=== PATIENT | female | born 1980 | race Caucasian/White ===

== ENCOUNTER 2020-09-11 13:15 | Outpatient (CLI) | payer BC ==
[2020-08-13 17:52] VITALS: BMI 47.5
[~2020-09-11 13:15] MED LIST: DICLOFENAC SODI50 MG PO; LEXAPRO10 MG PO; VOLTAREN100 GM TOPICAL
== END 2020-09-11 23:59 | disposition home or self-care (01) ==
LOC: D.MAMMO 13:15
PROVIDERS: ATTEND Nurse Practitioner Family
DX: Z12.31 Encounter for screening mammogram for malignant neoplasm of breast (principal)

== ENCOUNTER → 2020-09-20 18:32 | Outpatient (CLI) | payer BC ==
[2020-08-13 17:52] VITALS: BMI 47.5
== END | disposition home or self-care (01) ==
LOC: D.LABREF 18:32
PROVIDERS: ATTEND Orthopaedic Surgery
DX: M17.11 Unilateral primary osteoarthritis, right knee (principal)

== ENCOUNTER 2020-10-10 11:48 | Observation (INO) | payer BC ==
[~2020-10-10] VITALS: Ht 175.3 cm; Wt 140.9 kg
[2020-10-31 12:44] LABS: BACTERIA MANY HPF (NONE SEEN); BILIRUBIN NEGATIVE (NEGATIVE); KETONE NEGATIVE (NEGATIVE); NITRITE POSITIVE (NEGATIVE); SQUAMOUS EPITHELIAL 0-5 HPF (0-4); UROBILINOGEN NORMAL mg/dL (< 2)
[2020-10-31 13:18] LABS: BASOPHILS 0.6 % (0-2); EOSINOPHILS 4.9 % (0-7); HEMATOCRIT 38.4 % (36.0-48.0); HEMOGLOBIN 12.2 g/dL (12-16); IMMATURE GRANULOCYTES 0.2 % (0-5); LYMPHOCYTE ABS# 2.34 10x3/uL (1.18-3.74); LYMPHOCYTES 27.7 % (15-50); MCH 27.2 pg (26.0-34.0); MCHC 31.8 g/dL (31.0-37.0); MCV 85.5 fL (80.0-100.0); MEAN PLATELET VOLUME 10.3 fL (7.4-10.4); MONOCYTES 5.6 % (2-11); NEUTROPHIL ABS# 5.16 10x3/uL (1.56-6.13); PLATELET COUNT 341 10x3/uL (130-400); RBC 4.49 10x6/uL (4.00-5.40); RDW 13.9 % (11.5-14.5); WBC 8.5 10x3/uL (4.8-10.8)
[2020-10-31 13:23] LABS: CALC OSMOLALITY 273 mosm/kg (275-300); CALCIUM 8.9 mg/dL (8.5-10.1); CHLORIDE - SERUM 102 mmol/L (98-107); CREATININE - SERUM 0.7 mg/dL (0.6-1.3); GLUCOSE 97 mg/dL (74-106); SODIUM 138 mmol/L (136-145); UREA NITROGEN 6 mg/dL (7-18); eGFR NON AFRICAN AMERICAN > 90 mL/min (90-120)
[2020-10-31 13:45] LABS: APTT 27.2 SECONDS (22.8-39.4); INR 0.94 (0.85-1.17); PROTIME 11.6 SECONDS (11.6-15.0)
[2020-11-06] VITALS (8 sets, daily range): BP systolic 134–142; BP diastolic 70–91; Ht 175.3 cm; Wt 140.9 kg
[2020-11-06 08:55] LABS: BILIRUBIN NEGATIVE (NEGATIVE); KETONE NEGATIVE (NEGATIVE); NITRITE NEGATIVE (NEGATIVE); UROBILINOGEN NORMAL mg/dL (< 2)
--- NOTE | 2020-11-06 10:51 | NUR ---
CAUTERY PAD PLACED ON LEFT THIGH. PLASMA BLADE USED ON SETTING 6/8. AQUAMANTYS USED ON SETTING 170. CAUTERY PAD LOT#[id number] EXP. 03/05/2022. JOINT COCKTAIL MIX FROM PHARMACY USED IN RIGHT KNEE JOINT BY DR SHARIF. JOINT COCKTAIL MADE WITHOUT MORPHINE BECAUSE PATIENT IS ALLERGIC.
--- NOTE | 2020-11-06 13:10 | NUR ---
RECEIEVED FROM PACU PER BED. AWAKE AND ALERT-OXYGEN AT 3L PER NC. RIGHT KNEE WRAPPED IN BJ WRAP CLEAN DRY AND INTACT. BILAT GARTH HOSE AND SCDS ON AND ATTACHED TO MACHINE. BED ALARM ON. CALL LIGHT IN REACH
--- NOTE | 2020-11-06 16:15 | NUR ---
voided large amount of clear urine on bedpan. states feels better than before. fresh ice given
--- NOTE | 2020-11-06 18:05 | MORECARE ---
CASE MANAGEMENT DISCHARGE SUMMARY PATIENT: CHARLIE CORDERO UNIT: [id number] ADM DATE: 11/06/20 AGE: 40 : 79 SEX: F ROOM/BED: D.1212 AUTHOR: MAIK,ALEIDA PHYSICIAN: REFERRING PHYSICIAN: CHRISTIANO SHARIF DO DATE OF SERVICE: 11/06/20 Case Management Discharge Planning Summary COMMENTS ENTERED DATE: 11/06/20 18:04 CT COMMENT TYPE: Discharge Planning REVIEWER: Antoni Mcknight CM met with patient to complete DC plan and to evaluate needs. Patient lives alone with limited support. Patient identified her best friend, Santos Sharif, as her person to notify. Patient stated that her home is safe and has electricity and running water. Patient stated that the home has 6 steps to enter and she is able to manage the steps without difficulty. Patient stated that she has no problems paying for medications and she fills her medications at [facility]. Patient stated that her primary care physician is Dr. Diego Pope. At discharge, the patient plans to return home and feels this is a safe discharge. CM discussed availability of home health, rehab services, and medical equipment. Patient declined HHS, SNF, IPR, and DME. Patient stated that her CPM and Walker arrived at the house before surgery. Patient would like to discuss the possibility of HHS with Dr. Sharif because she feels that transportation will be unreliable. Patient would like Outpatient PT services with [facility] OP PT. Clinical Documents faxed. [facility] for [facility] OP PT signed and placed in chart. Patient voiced no other needs at this time and is satisfied with DC plan. CM will continue to follow and will assist as needed with dc plans/needs. DCP REVIEW SUMMARY ANTICIPATED D/C DATE: EXPECTED LOS : CASE STATUS: DCP Initiated INITIAL REVIEW: 11/06/2020 INITIAL REVIEWER: Antoni Mcknight FINAL DISCHARGE DISPOSITION: : FINAL REVIEWER: FINAL REVIEW DATE: DCP Focus Questions & Answers DCP Evaluation QUESTION: ANSWER Family / Caregiver's ability to cope with chronic illness: : a. Adequate (ability to meet patient's medical needs, ensures patient attends medical appts.) Patient gives permission to discuss discharge plans with: (name, relationship and number) : friend, Santos Sharif, Patient's ability to cope with chronic illness : d. No chronic illness Patient's current cognitive status: : *Oriented to person, place, situation, time and present Patient and/or caregiver agree upon recommended discharge plan? : Yes Physical Status: : Independent with ADL's Family / Caregiver's ability to cope with chronic illness: : a. Adequate (ability to meet patient's medical needs, ensures patient attends medical appts.) Functional screen assessment: : Basic needs can adequately be met by self Does the patient have the ability to pay for or attain post discharge needs / services? : Yes Living Arrangements: : Home Alone with No Support Is there a likelihood that the patient will require additional services to return to the preadmission environment? : No Equipment needed for post hospitalization: : None Baseline cognitive status: : *Oriented to person, place, situation, time and present Patient with capacity for self-care or can be cared for in same environment as prior to hospitalization? : Yes Physical environment modification needed / anticipated for discharge: : No Medication Management: : Patient states can afford medications Medication Management: : Patient states can read and understand medication labels Pharmacy name(s): : [facility] Does Patient have transportation to get home and to follow-up medical appointments when discharged from the hospital? : Yes Would patient like to participate in any Care Coordination programs (if applicable): : Not applicable Does the patient have electricity at home? : Yes Does the patient have running water in their house? : Yes Equipment in use: : None Other Equipment comments: : CPM and WALKER Delivered before Surgery Mental health screen: : No mental health history DCP Re-evaluation QUESTION: ANSWER Would patient like to participate in any Care Coordination programs (if applicable): : Not applicable PATIENT: CHARLIE CORDERO ENCOUNTER: [id number] MEDICAL RECORD#: [id number] ADMISSION DATE: 11/06/2020 DISCHARGE DATE: ATTENDING MD: CHRISTIANO HECK : AGE: 40 MARITAL STATUS: S DC PLAN ID: [id number] FACILITY: [facility] PRINTED ON: 11/06/20 18:05 CT All edits/amendments must be made on the electronic document DICTATION DATE: 11/06/201804 DOMESTIC HOUSEKEEPER: LAURA 11/06/201804 RPT#: [id number] DC DATE: STATUS: ADM IN [facility] [address] [facility] [place] [address] END OF REPORT
--- NOTE | 2020-11-06 20:00 | NUR ---
ALERT RESTING IN BED CPM IN USE, REPORTS PAIN BETTER AFTER MEDICATION, SEE SHIFT ASSESSMENT, CALL LIGHT IN REACH
--- NOTE | 2020-11-06 20:17 | OP ---
PATIENT NAME: CHARLIE CORDERO MEDICAL RECORD: [id number] :78 LOCATION:D. D.1212 ADMISSION DATE:11/06/20 SURGEON: JULES SHARIF DO DATE OF OPERATION: 11/06/2020 PROCEDURE PERFORMED: Right total knee arthroplasty. PREOPERATIVE DIAGNOSIS: Right knee osteoarthritis. POSTOPERATIVE DIAGNOSIS: Right knee osteoarthritis. INDICATIONS: Ms. Cordero is a 40-year-old female who has had right knee pain for quite some time. She has tried all manner of nonoperative treatment including injections, physical therapy to no avail. 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 She was tired of dealing with it. I informed her that due to her young age, she would be at high risk for infection, bleeding, damage to nerves or vessels, need for further surgery, revision surgery in the future, failure of implants, blood clots, fracture, and even and she signed the consent. SURGEON: Jules Sharif DO DESCRIPTION OF PROCEDURE: The patient was taken to the operative suite. After getting a spinal and adductor canal block, laid in supine position, given light sedation, 3 grams of Ancef and 80 mg of gentamicin and a gram of TXA. The right lower extremity was then prepped and draped in sterile fashion. A timeout was performed. Everyone was in agreeance with the correct side, site, patient and procedure. I then marked out the incision of the anterior knee covered in Ioban. I then made careful dissection down through the skin with #10 blade scalpel to the capsule. The capsule was then opened with a fresh 10-blade, did a medial parapatellar approach and any bleeding was coagulated with Aquamantys. I then everted the patella and milled it down and drilled for a 29. Cement was mixed. We put cement around the patella and on the implant, squeezed it into place, removed the excess cement, let the squeezer on for 10 minutes. I then exposed the femur and removed the ACL and went to the femoral canal and then cut the distal femur with the distal femoral intramedullary guide. I then exposed the tibia and cut it off an extramedullary guide. I did end up cutting for more off the tibia due to not completely removing the cartilage on the lateral side. Of note, the medial and lateral femoral condyles as well as the trochlea had a large OCD lesions full thickness on them. The complete full thickness of the cartilage was gone. After cutting the tibia, I then sized the femur to be a 9. I used a 4-in-1 cutting block and an sharri wing to ensure there was no notching. I then removed the excess bone after cut through the 4-in-1 cutting block and then exposed the tibia, sized it to be a E after re-cutting it, pinned into place and then put on a 9 trial femur, dissected with a 9 narrow, put a 13 poly in between and it ranged very well, had good varus and valgus stress in extension, mid flexion, and flexion. I then drilled the holes for the lug holes for the femur. I then drilled the holes for the tibia after removing the poly and the femoral implant. I then irrigated and impacted on the tibia first, press fit and then femur and then put the 13-poly in between medial congruent bearing poly and squeezed it into place. I then ranged the knee, it ranged very nicely, had good stability to varus and valgus stress in extension, mid flexion, and flexion. I then irrigated with 10% povidine-iodine and 500 mL normal saline solution and put in the joint cocktail injecting around, but did not put in morphine due to her allergy. I then irrigated out the 10% povidine-iodine and OPERATIVE REPORT [id number] CHARLIE CORDERO S 500 mL of saline solution with over a liter of normal saline and putting Cesar and vancomycin and tobramycin powder, and then closed the capsule with #1 Vicryl in horizontal mattress fashion. Jami Cordon, certified registered dental assistant then closed the capsule with a running Stratafix #1 and then the skin with 2-0 Vicryl in inverted interrupted fashion, put a ZipLine on the knee and dressed with Adaptic, 4 x 4s, ABD, Webril, Bandar wrap and GARTH hose stocking up the knee. She was then awakened and taken to recovery in stable condition. BLOOD LOSS: Approximately 300 mL. COMPLICATIONS: None. TRANSINT:[id number] Voice Confirmation ID: [id number] DOCUMENT ID: [id number] JULES SHARIF DO at 2017 CC: [id number] DICTATION DATE: 11/06/20 1145 NUCLEAR CHEMISTRY TECHNICIAN: 11/06/20 1532 ADM IN [facility] [address] [place] [address]
[2020-11-07 00:31] VITALS: BP 135/63
[2020-11-07 04:00] VITALS: BP 132/68
[2020-11-07 07:11] VITALS: BP 123/55
--- NOTE | 2020-11-07 07:42 | NUR ---
PT SEEN AND ASSESSED. STATES PAIN IS 5/10 BUT OK FOR THE MOMENT. USED BEDPAN AND VOIDED FREELY. CURRENTLY IN CPM MACHINE WITH SCDS AND GARTH HOSE ON BILAT. RIGHT KNEE BJ WRAP CLEAN DRY AND INTACT. CALL LIGHT IN REACH AND BED ALARM ACTIVATED.
[2020-11-07 08:04] LABS: BASOPHILS 0.2 % (0-2); EOSINOPHILS 0.9 % (0-7); HEMATOCRIT 31.5 % (36.0-48.0); HEMOGLOBIN 9.8 g/dL (12-16); IMMATURE GRANULOCYTES 0.2 % (0-5); LYMPHOCYTES 17.3 % (15-50); MCH 26.3 pg (26.0-34.0); MCHC 31.1 g/dL (31.0-37.0); MCV 84.7 fL (80.0-100.0); MEAN PLATELET VOLUME 10.4 fL (7.4-10.4); MONOCYTES 6.7 % (2-11); NEUTROPHIL ABS# 9.53 10x3/uL (1.56-6.13); NEUTROPHILS 74.7 % (40-80); PLATELET COUNT 317 10x3/uL (130-400); RBC 3.72 10x6/uL (4.00-5.40); RDW 13.9 % (11.5-14.5); WBC 12.7 10x3/uL (4.8-10.8)
[2020-11-07 08:13] LABS: CALC OSMOLALITY 274 mosm/kg (275-300); CALCIUM 8.2 mg/dL (8.5-10.1); CHLORIDE - SERUM 103 mmol/L (98-107); CREATININE - SERUM 0.7 mg/dL (0.6-1.3); GLUCOSE 98 mg/dL (74-106); POTASSIUM - SERUM 4.1 mmol/L (3.5-5.1); SODIUM 138 mmol/L (136-145); UREA NITROGEN 9 mg/dL (7-18); eGFR NON AFRICAN AMERICAN > 90 mL/min (90-120)
[2020-11-07 11:39] VITALS: BP 132/60
[2020-11-07] MEDS ORDERED: ELIQUIS2.5 MG PO (14:08)
[2020-11-07] MEDS ORDERED: PERCOCET 10-321 EAC1 PO (14:08)
[2020-11-07] MEDS ORDERED: VISTARIL50 MG PO (14:09)
[2020-11-07] MEDS ORDERED: TORADOL10 MG PO (14:09)
--- NOTE | 2020-11-07 15:04 | MORECARE ---
CASE MANAGEMENT DISCHARGE SUMMARY PATIENT: CHARLIE CORDERO UNIT: [id number] ADM DATE: 11/06/20 AGE: 40 : 78 SEX: F ROOM/BED: D.1212 AUTHOR: MAIK,DOC PHYSICIAN: REFERRING PHYSICIAN: CHRISTIANO SHARIF DO DATE OF SERVICE: 11/07/20 Case Management Discharge Planning Summary COMMENTS ENTERED DATE: 11/07/20 14:55 CT COMMENT TYPE: Discharge Planning REVIEWER: Krysten Darby CM called patient and she is going to have OP PT with [facility]. She states that she does have a ride to OP PT. I called and her first visit is tomorrow at 10:30, nurse Elva informed to place on order sheet at front of chart and notify patient. Home today with OP PT. ENTERED DATE: 11/06/20 18:04 CT COMMENT TYPE: Discharge Planning REVIEWER: Antoni Mcknight CM met with patient to complete DC plan and to evaluate needs. Patient lives alone with limited support. Patient identified her best friend, Santos Sharif, as her person to notify. Patient stated that her home is safe and has electricity and running water. Patient stated that the home has 6 steps to enter and she is able to manage the steps without difficulty. Patient stated that she has no problems paying for medications and she fills her medications at [facility]. Patient stated that her primary care physician is Dr. Diego Pope. At discharge, the patient plans to return home and feels this is a safe discharge. CM discussed availability of home health, rehab services, and medical equipment. Patient declined HHS, SNF, IPR, and DME. Patient stated that her CPM and Walker arrived at the house before surgery. Patient would like to discuss the possibility of HHS with Dr. Sharif because she feels that transportation will be unreliable. Patient would like Outpatient PT services with [facility] OP PT. Clinical Documents faxed. [facility] for [facility] OP PT signed and placed in chart. Patient voiced no other needs at this time and is satisfied with DC plan. CM will continue to follow and will assist as needed with dc plans/needs. DCP REVIEW SUMMARY ANTICIPATED D/C DATE: EXPECTED LOS : CASE STATUS: DCP Initiated INITIAL REVIEW: 11/06/2020 INITIAL REVIEWER: Antoni Mcknight FINAL DISCHARGE DISPOSITION: : FINAL REVIEWER: FINAL REVIEW DATE: DCP Focus Questions & Answers DCP Evaluation QUESTION: ANSWER Patient and/or caregiver agree upon recommended discharge plan? : Yes Patient's current cognitive status: : *Oriented to person, place, situation, time and present Patient's ability to cope with chronic illness : d. No chronic illness Patient gives permission to discuss discharge plans with: (name, relationship and number) : friend, Santos Sharif, Family / Caregiver's ability to cope with chronic illness: : a. Adequate (ability to meet patient's medical needs, ensures patient attends medical appts.) Does the patient have the ability to pay for or attain post discharge needs / services? : Yes Functional screen assessment: : Basic needs can adequately be met by self Family / Caregiver's ability to cope with chronic illness: : a. Adequate (ability to meet patient's medical needs, ensures patient attends medical appts.) Physical Status: : Independent with ADL's Equipment needed for post hospitalization: : None Is there a likelihood that the patient will require additional services to return to the preadmission environment? : No Living Arrangements: : Home Alone with No Support Patient with capacity for self-care or can be cared for in same environment as prior to hospitalization? : Yes Baseline cognitive status: : *Oriented to person, place, situation, time and present Physical environment modification needed / anticipated for discharge: : No Medication Management: : Patient states can afford medications Medication Management: : Patient states can read and understand medication labels Pharmacy name(s): : [facility] Does Patient have transportation to get home and to follow-up medical appointments when discharged from the hospital? : Yes Would patient like to participate in any Care Coordination programs (if applicable): : Not applicable Does the patient have electricity at home? : Yes Does the patient have running water in their house? : Yes Equipment in use: : None Other Equipment comments: : CPM and WALKER Delivered before Surgery Mental health screen: : No mental health history DCP Re-evaluation QUESTION: ANSWER Would patient like to participate in any Care Coordination programs (if applicable): : Not applicable PATIENT: CHARLIE CORDERO ENCOUNTER: [id number] MEDICAL RECORD#: [id number] ADMISSION DATE: 11/06/2020 DISCHARGE DATE: ATTENDING MD: CHRISTIANO HECK : AGE: 40 MARITAL STATUS: S DC PLAN ID: [id number] FACILITY: [facility] PRINTED ON: 11/07/20 15:04 CT All edits/amendments must be made on the electronic document DICTATION DATE: 11/07/201503 KINDERGARTEN ASSISTANT: LAURA 11/07/20 150 RPT#: [id number] DC DATE: STATUS: ADM IN [facility] [address] [place] [address] END OF REPORT
--- NOTE | 2020-11-07 15:59 | NUR ---
DRESSING CHANGED TO RIGHT KNEE-ZIPPER LEFT IN PLACE AND MEDIPLEX AQ APPLIED WITH CLEAN PROCEDURE. EXPLAINED PROCESS TO PATIENT WITH VERBAL UNDERSTANDING BACK. REQWRAPPED WITH BJ WRAP. DRESSINGS X 5 AND BJ WRAP X 2 GIVEN TO PATIENT. IV REMOVED. TO FRONT DOOR PER WC AND WALKER.
--- NOTE | 2020-11-07 16:05 | MORECARE ---
CASE MANAGEMENT DISCHARGE SUMMARY PATIENT: CHARLIE CORDERO UNIT: [id number] ADM DATE: 11/06/20 AGE: 40 : 78 SEX: F ROOM/BED: D.1212 AUTHOR: MAIK,DOC PHYSICIAN: REFERRING PHYSICIAN: CHRISTIANO SHARIF DO DATE OF SERVICE: 11/07/20 Case Management Discharge Planning Summary COMMENTS ENTERED DATE: 11/07/20 14:55 CT COMMENT TYPE: Discharge Planning REVIEWER: Krysten Darby CM called patient and she is going to have OP PT with [facility]. She states that she does have a ride to OP PT. I called and her first visit is tomorrow at 10:30, nurse Elva informed to place on order sheet at front of chart and notify patient. Home today with OP PT. ENTERED DATE: 11/06/20 18:04 CT COMMENT TYPE: Discharge Planning REVIEWER: Antoni Mcknight CM met with patient to complete DC plan and to evaluate needs. Patient lives alone with limited support. Patient identified her best friend, Santos Sharif, as her person to notify. Patient stated that her home is safe and has electricity and running water. Patient stated that the home has 6 steps to enter and she is able to manage the steps without difficulty. Patient stated that she has no problems paying for medications and she fills her medications at [facility]. Patient stated that her primary care physician is Dr. Diego Pope. At discharge, the patient plans to return home and feels this is a safe discharge. CM discussed availability of home health, rehab services, and medical equipment. Patient declined HHS, SNF, IPR, and DME. Patient stated that her CPM and Walker arrived at the house before surgery. Patient would like to discuss the possibility of HHS with Dr. Sharif because she feels that transportation will be unreliable. Patient would like Outpatient PT services with [facility] OP PT. Clinical Documents faxed. [facility] for [facility] OP PT signed and placed in chart. Patient voiced no other needs at this time and is satisfied with DC plan. CM will continue to follow and will assist as needed with dc plans/needs. DCP REVIEW SUMMARY ANTICIPATED D/C DATE: EXPECTED LOS : CASE STATUS: DCP Initiated INITIAL REVIEW: 11/06/2020 INITIAL REVIEWER: Antoni Mcknight FINAL DISCHARGE DISPOSITION: : FINAL REVIEWER: FINAL REVIEW DATE: DCP Focus Questions & Answers DCP Evaluation QUESTION: ANSWER Patient and/or caregiver agree upon recommended discharge plan? : Yes Patient's current cognitive status: : *Oriented to person, place, situation, time and present Patient's ability to cope with chronic illness : d. No chronic illness Patient gives permission to discuss discharge plans with: (name, relationship and number) : friend, Santos Sharif, Family / Caregiver's ability to cope with chronic illness: : a. Adequate (ability to meet patient's medical needs, ensures patient attends medical appts.) Does the patient have the ability to pay for or attain post discharge needs / services? : Yes Functional screen assessment: : Basic needs can adequately be met by self Family / Caregiver's ability to cope with chronic illness: : a. Adequate (ability to meet patient's medical needs, ensures patient attends medical appts.) Physical Status: : Independent with ADL's Equipment needed for post hospitalization: : None Is there a likelihood that the patient will require additional services to return to the preadmission environment? : No Living Arrangements: : Home Alone with No Support Patient with capacity for self-care or can be cared for in same environment as prior to hospitalization? : Yes Baseline cognitive status: : *Oriented to person, place, situation, time and present Physical environment modification needed / anticipated for discharge: : No Medication Management: : Patient states can afford medications Medication Management: : Patient states can read and understand medication labels Pharmacy name(s): : [facility] Does Patient have transportation to get home and to follow-up medical appointments when discharged from the hospital? : Yes Would patient like to participate in any Care Coordination programs (if applicable): : Not applicable Does the patient have electricity at home? : Yes Does the patient have running water in their house? : Yes Equipment in use: : None Other Equipment comments: : CPM and WALKER Delivered before Surgery Mental health screen: : No mental health history DCP Re-evaluation QUESTION: ANSWER Would patient like to participate in any Care Coordination programs (if applicable): : Not applicable PATIENT: CHARLIE CORDERO ENCOUNTER: [id number] MEDICAL RECORD#: [id number] ADMISSION DATE: 11/06/2020 DISCHARGE DATE: 11/07/2020 ATTENDING MD: CHRISTIANO HECK : AGE: 40 MARITAL STATUS: S DC PLAN ID: [id number] FACILITY: [facility] PRINTED ON: 11/07/20 16:05 CT All edits/amendments must be made on the electronic document DICTATION DATE: 11/07/201604 SECURITY OPERATIONS SPECIALIST: LAURA 11/07/201604 RPT#: [id number] DC DATE:11/07/20 STATUS: DIS IN [facility] [address] [place] [address] END OF REPORT
--- NOTE | 2020-11-07 18:23 | MORECARE ---
CASE MANAGEMENT DISCHARGE SUMMARY PATIENT: CHARLIE CORDERO UNIT: [id number] ADM DATE: 11/06/20 AGE: 40 : 78 SEX: F ROOM/BED: D.1212 AUTHOR: MAIK,DOC PHYSICIAN: REFERRING PHYSICIAN: CHRISTIANO SHARIF DO DATE OF SERVICE: 11/07/20 Case Management Discharge Planning Summary COMMENTS ENTERED DATE: 11/07/20 14:55 CT COMMENT TYPE: Discharge Planning REVIEWER: Krysten Darby CM called patient and she is going to have OP PT with [facility]. She states that she does have a ride to OP PT. I called and her first visit is tomorrow at 10:30, nurse Elva informed to place on order sheet at front of chart and notify patient. Home today with OP PT. ENTERED DATE: 11/06/20 18:04 CT COMMENT TYPE: Discharge Planning REVIEWER: Antoni Mcknight CM met with patient to complete DC plan and to evaluate needs. Patient lives alone with limited support. Patient identified her best friend, Santos Sharif, as her person to notify. Patient stated that her home is safe and has electricity and running water. Patient stated that the home has 6 steps to enter and she is able to manage the steps without difficulty. Patient stated that she has no problems paying for medications and she fills her medications at [facility]. Patient stated that her primary care physician is Dr. Diego Pope. At discharge, the patient plans to return home and feels this is a safe discharge. CM discussed availability of home health, rehab services, and medical equipment. Patient declined HHS, SNF, IPR, and DME. Patient stated that her CPM and Walker arrived at the house before surgery. Patient would like to discuss the possibility of HHS with Dr. Sharif because she feels that transportation will be unreliable. Patient would like Outpatient PT services with [facility] OP PT. Clinical Documents faxed. [facility] for [facility] OP PT signed and placed in chart. Patient voiced no other needs at this time and is satisfied with DC plan. CM will continue to follow and will assist as needed with dc plans/needs. DCP REVIEW SUMMARY ANTICIPATED D/C DATE: EXPECTED LOS : CASE STATUS: DCP Initiated INITIAL REVIEW: 11/06/2020 INITIAL REVIEWER: Antoni Mcknight FINAL DISCHARGE DISPOSITION: : FINAL REVIEWER: FINAL REVIEW DATE: DCP Focus Questions & Answers DCP Evaluation QUESTION: ANSWER Patient and/or caregiver agree upon recommended discharge plan? : Yes Patient's current cognitive status: : *Oriented to person, place, situation, time and present Patient's ability to cope with chronic illness : d. No chronic illness Patient gives permission to discuss discharge plans with: (name, relationship and number) : friend, Santos Sharif, Family / Caregiver's ability to cope with chronic illness: : a. Adequate (ability to meet patient's medical needs, ensures patient attends medical appts.) Does the patient have the ability to pay for or attain post discharge needs / services? : Yes Functional screen assessment: : Basic needs can adequately be met by self Family / Caregiver's ability to cope with chronic illness: : a. Adequate (ability to meet patient's medical needs, ensures patient attends medical appts.) Physical Status: : Independent with ADL's Equipment needed for post hospitalization: : None Is there a likelihood that the patient will require additional services to return to the preadmission environment? : No Living Arrangements: : Home Alone with No Support Patient with capacity for self-care or can be cared for in same environment as prior to hospitalization? : Yes Baseline cognitive status: : *Oriented to person, place, situation, time and present Physical environment modification needed / anticipated for discharge: : No Medication Management: : Patient states can afford medications Medication Management: : Patient states can read and understand medication labels Pharmacy name(s): : [facility] Does Patient have transportation to get home and to follow-up medical appointments when discharged from the hospital? : Yes Would patient like to participate in any Care Coordination programs (if applicable): : Not applicable Does the patient have electricity at home? : Yes Does the patient have running water in their house? : Yes Equipment in use: : None Other Equipment comments: : CPM and WALKER Delivered before Surgery Mental health screen: : No mental health history DCP Re-evaluation QUESTION: ANSWER Would patient like to participate in any Care Coordination programs (if applicable): : Not applicable PATIENT: CHARLIE CORDERO ENCOUNTER: [id number] MEDICAL RECORD#: [id number] ADMISSION DATE: 11/06/2020 DISCHARGE DATE: 11/07/2020 ATTENDING MD: CHRISTIANO HECK : AGE: 40 MARITAL STATUS: S DC PLAN ID: [id number] FACILITY: [facility] PRINTED ON: 11/07/20 18:23 CT All edits/amendments must be made on the electronic document DICTATION DATE: 11/07/201822 JUNIOR PROJECT COORDINATOR: LAURA 11/07/201822 RPT#: [id number] DC DATE:11/07/20 STATUS: DIS IN [facility] [address] [place] [address] END OF REPORT
== END 2020-11-07 16:00 | disposition home or self-care (01) ==
LOC: D.SDCHOLD 11-06 06:35 → D.M3 11-06 06:35 → D.SDCHOLD 11-06 08:20 → OBSVTIME 11-06 11:45 → D.SDCHOLD 11-06 11:45 → D.M3 11-06 12:16
PROVIDERS: Family Medicine; ADMIT Orthopaedic Surgery; ATTEND Orthopaedic Surgery
DX: M17.11 Unilateral primary osteoarthritis, right knee (principal); G43.909 Migraine, unspecified, not intractable, without status migrainosus; F32.9 Major depressive disorder, single episode, unspecified; F41.9 Anxiety disorder, unspecified; G89.29 Other chronic pain

== ENCOUNTER → 2020-12-24 18:24 | Outpatient (CLI) | payer BC ==
[2020-11-06 12:54] VITALS: BMI 45.9
[~2020-12-24 18:24] MED LIST changes: +ELIQUIS2.5 MG PO; +PERCOCET 10-321 EAC1 PO; +TORADOL10 MG PO; +VISTARIL50 MG PO
== END | disposition home or self-care (01) ==
LOC: D.LABREF 18:24
PROVIDERS: ATTEND Orthopaedic Surgery
DX: M17.12 Unilateral primary osteoarthritis, left knee (principal)